=== PATIENT | male | born 1960 | race Caucasian/White ===

== ENCOUNTER 2017-02-10 05:48 | Emergency (ER) | payer BC ==
[~2017-02-10] VITALS: Ht 167.6 cm; Wt 61.2 kg
[2017-02-10] MEDS ORDERED: IV NORMAL SALINE 1,000ML 1,000 ML IV SCH (06:00)
[2017-02-10] MEDS ORDERED: ONDANSETRON PF 4 MG/2 ML VIAL. IV ONE (06:15)
[2017-02-10] MEDS ORDERED: PROMETHAZINE IM 25 MG/ML VIAL IM ONE (06:18)
[2017-02-10] MEDS ORDERED: IV NORMAL SALINE 50ML 50 ML ONE (06:19)
[2017-02-10] MEDS: PROMETHAZINE 25 MG in IV NORMAL SALINE 50ML 50 ML IV PRN ×2 (06:22→06:29)
[2017-02-10 06:25] LABS: HEMOGLOBIN ISTAT 17.3 gm/dL; POTASSIUM ISTAT 5.9 mmol/L (3.5-5.0)
--- NOTE | 2017-02-10 06:31 | EKG ---
[address] [address] Test Date: 2017-02-10 Test Time: 06:29:26 Pat Name: KJ VARNER Department: Room: Gender: M Housecleaner: VINCENT : 1960 Requested By: SHELIA GAITAN Order Number: [id number] Reading MD: Home Mary Measurements Intervals [place] Rate: 117 P: -123 OK: 124 QRS: 75 QRSD: 106 T: 62 QT: 300 QTc: 423 Interpretive Statements SINUS TACHYCARDIA NON-SPECIFIC ST/T CHANGES Electronically Signed On 02-12-2017 9:46:45 CDT by Home Mary
[2017-02-10 06:32] LABS: BASO # 0.2 x10^3/uL (0.0-0.2); BASO % 1 % (0-3); EOS % 0 % (0-3); HEMATOCRIT 48.9 % (39.0-53.0); HEMOGLOBIN 15.6 g/dL (13.0-17.5); LYMPH # 0.7 x10^3/uL (1.0-4.8); LYMPH % 3 % (24-48); MEAN CORPUSCULAR HEMOGLOBIN 34 pg (25-35); MEAN CORPUSCULAR HGB CONC 32 g/dL (31-37); MEAN CORPUSCULAR VOLUME 106 fL (79-100); MONO # 0.6 x10^3/uL (0.0-1.1); MONO % 2 % (0-9); NEUT # 22.5 x10^3uL (1.8-7.7); NEUT % 94 % (31-73); PLATELET COUNT 289 x10^3/uL (140-400); RED BLOOD COUNT 4.63 x10^6/uL (4.30-5.70); WHITE BLOOD COUNT 23.9 x10^3/uL (4.0-11.0)
--- NOTE | 2017-02-10 06:35 | PHYS DOC ---
General Chief Complaint: NAUSEA/VOMITING/DIARRHEA Stated Complaint: VOMITING Time Seen by MD: 05:58 Source: patient, family Exam Limitations: clinical condition Problems: History of Present Illness Initial Comments Pt is 56/M h/o DM2 to ED with spouse c/o n/v. Pt reports sudden onset n/v x 24 hours (0700 yest), chest pain developed 1800 yesterday (moderate, ant chest, tightness no exac/reliev factors). Last PO was attempt to eat some breakfast yesterday, reports PO intolerance. FSBS at home "high" spouse convinced him to come to ED this morning. On arrival pt with severe n/v, emesis with red tint and sent for gastroccult. Denies chest pain on arrival, c/o generalized abdominal muscle discomfort no focal abdominal pain c/o. No travel/bad food exposure, no fever/chills/myalgias/sob/focal neurodef. 98.5, 110, 28, 185/79, 100% RA Colonoscopy 1 month ago reportedly normal. 10# weight loss past 12 months. Follows with Kaya Hagen Timing/Duration: 24 hours Severity: severe Modifying Factors: worse with eating Associated Symptoms: chest pain, diaphoresis, headaches, malaise, nausea/ vomiting, weakness, other Allergies: Coded Allergies: pseudoephedrine (Verified Allergy, Unknown, 02/10/17) Past Medical History Medical History: other (DM) Surgical History: appendectomy (colonoscopy one month ago "normal") Social History Smoker: non-smoker Alcohol: none Drugs: none Review of Systems Constitutional: denies chills, diaphoresis, denies fever, malaise, weakness Respiratory: denies cough, denies shortness of breath, denies wheezing Cardiovascular: see HPI, denies edema, denies palpitations, denies syncope Gastrointestinal: see HPI, abdominal pain, denies constipation, denies diarrhea , nausea, vomiting Genitourinary: denies dysuria, denies frequency, denies hematuria Musculoskeletal: denies back pain, denies joint swelling, muscle pain, denies neck pain Psychiatric/Neurological: headache, denies numbness, denies paresthesia, denies weakness Hematologic/Lymphatic: denies blood clots, denies easy bleeding, denies easy bruising Physical Exam General Appearance: severe distress, thin Eyes: bilateral eye normal inspection, bilateral eye PERRL, bilateral eye EOMI Ear, Nose, Throat: hearing grossly normal, normal ENT inspection, normal pharynx (very dry mucus membranes) Neck: non-tender, supple Respiratory: normal breath sounds, no respiratory distress Cardiovascular: normal peripheral pulses, no edema, tachycardia Gastrointestinal: soft (nondistended, diffusely tender no focality, neg kapadia no r/g/mass) Back: no CVA tenderness, no vertebral tenderness Extremities: non-tender, normal inspection Neurologic/Psychiatric: 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 Today's study with markedly peaked T waves (K+ 5.9) vs prior study 11/18/08. Given changes I did request Dr Tobar review the EKG he confirmed hyperkalemic changes. 1 View Chest: reviewed by me, no acute cardiopulmonary process evident on imaging. WBC 23.9, Hb 15.9, Na 129, K+ 5.8, CO2 7, BUN 36, Cr 1.9, glucose 607, lipase 3285, lactic acid 5.5, emesis gastroccult +, cultures pending Course: DM2 pt in severe distress with n/v to ED tachycardic/afebrile/ hypertensive. Phenergan 25mg/zofran 4mg along with NS bolus initiated on pt arrival with control of emesis. 14u regular insulin IV with glucose check shortly after 585. Protonix drip due to GIB will need GI. 0745: Pt discussed with Dr Alcocer who accepts pt for EMS transfer to ICU at [facility] will need GI evaluation on arrival. IMPRESSIONS: Acute Pancreatitis UGIB (suspect Ml-Shay) Metabolic Acidosis DM2 Hyperosmolar ARF Chest Pain with nl troponin I Hyperkalemia Hypovolemic Hyponatremia Departure Disposition: 05 XFER OTHER Diagnosis: GIB, pancreatitis, DM2 hyperosmolar/acidotic, ARF, Condition: STABLE Additional Instructions: EMS transfer to [facility] ICU Dr Alcocer is accepting. SHELIA GAITAN DO February 10, 2017 06:34
[2017-02-10 06:52] LABS: BGAS PH 7.05 (7.35-7.46)
[2017-02-10 06:55] LABS: GASTRIC OB PAT POSITIVE (NEG)
[2017-02-10 07:00] LABS: ALBUMIN 4.7 g/dL (3.4-5.0); ALBUMIN/GLOBULIN RATIO 1.2 (1.0-1.7); CALCIUM 9.6 mg/dL (8.5-10.1); CREATININE 1.9 mg/dL (0.7-1.3); MAGNESIUM 2.5 mg/dL (1.8-2.4); POTASSIUM 5.8 mmol/L (3.5-5.1); TOTAL BILIRUBIN 0.6 mg/dL (0.2-1.0); TOTAL PROTEIN 8.7 g/dL (6.4-8.2)
[2017-02-10] MEDS ORDERED: INSULIN REGULAR 100 UNIT/ML 10ML VIAL. IV ONE (07:00)
[2017-02-10] MEDS ORDERED: ASPI-630 PO (07:15)
[2017-02-10] MEDS ORDERED: INSU100V13 SQ (07:15)
[2017-02-10] MEDS ORDERED: INSU100I11 SQ (07:15)
[2017-02-10 07:22] LABS: % BANDS 3 % (0-9); % LYMPHS 5 % (24-48); % MONOS 1 % (0-10); % SEGS 91 % (35-66)
--- NOTE | 2017-02-10 07:22 | ACF ---
Admission Criteria Forms VOMITING Clinical Indications for Admission to Inpatient Care ( Place 'X' for any and all applicable criteria): Admission is indicated for 1 or more of the following(1)(2)(3): [ ]I. Complete or partial gastrointestinal obstruction [ ]II. Vomiting due to significant metabolic derangement (eg, severe hypercalcemia, diabetic ketoacidosis) [ ]III. Other cause of vomiting requiring hospitalization (eg, poisoning, increased intracranial pressure) [X]IV. Inpatient admission required rather than observation care because of 1 or more of the following [ ]i) Hemodynamic instability [ ]ii) Vomiting that is severe or persistent indicated by 1 or more of the following 1) Numerous episodes of vomiting in past 24hours (eg, every 1 to 2 hours) 2) Suggests severe underlying cause or complication (eg , projectile, feculent, bilious, coffee ground, bloody) 3) Appropriate antiemetic treatment (eg, repeated oral or parenteral dosing) does not sufficiently reduce vomiting within 12 to 24 hours of treatment 4) Treatment regimen necessary to adequately control vomiting requires inpatient level of care (eg, not immediately available in outpatient setting) [X]iii) Severe electrolyte abnormalities requiring inpatient care [ ]iv) Severe pain requiring acute inpatient management( Continuous or frequent (eg, every 2 to 4 hours) parental analgesics or analgesic regimen that can only be performed or initiated in inpatient setting) [ ]v) High fever or infection requiring inpatient admission as indicated by 1 or more of the following(7)(8): [ ]1) Appropriate outpatient or observation care antimicrobial treatment unavailable, not effective, or not feasible [ ]2) Documented bacteremia [ ]3) Temp >104.9 degrees F (40.5 degrees C) (oral) [ ]4) Temp >103.1 degrees F (39.5 C) (oral) or <96.8 degrees F (36 C) (rectal) that does not respond to all emergency treatment measures [ ]vi) Acute renal failure [ ]vii) IV fluid required rather than oral rehydration to replace significant on going losses (greater than 3 L/m2 per day) [ ]viii) Parenteral nutrition regimen that must be implemented on inpatient basis [ ]ix) Other condition, treatment or monitoring requiring inpatient admission Extended stay beyond goal length of stay may be needed for(1)(4): [ ]a) Severe vomiting [ ]b) Persistent vomiting, vital sign changes, severe electrolyte imbalance , or diagnosed cause of vomiting that requires continued hospitalization (eg, gastrointestinal obstruction , increased intracranial pressure) [ ]c) Surgery to treat identified causes of vomiting (eg, bowel obstruction , intracranial process) [ ]d) Comorbid illness that requires inpatient care (eg, acute heart failure , renal failure) [ ]e) Need for inpatient endoscopy The original [facility] content created by [employer] has been revised. The portions of the content which have been revised are identified through the use of italic text or in bold, and [facility] has neither reviewed nor approved the modified material. All other unmodified content is copyright [employer]. Please see references footnoted in the original [facility] edition 2016 YARELIS POWELL February 10, 2017 07:22
[2017-02-10 07:23] LABS: PLT ESTIMATE ADEQUATE (ADEQUATE)
[2017-02-10 07:24] LABS: POLYCHROMASIA SLIGHT; TOXIC GRANULATION SLIGHT
[2017-02-10 07:25] LABS: TOXIC VACUOLATION SLIGHT
--- NOTE | 2017-02-10 07:27 | ACF ---
Admission Criteria Forms DIABETES Clinical Indications for Admission to Inpatient Care (Place 'X' for any and all applicable criteria): Admission is indicated by presence of ALL (if I & II) or ANY ONE (if III or IV) of the following (1)(2)(3)(4): [ ]I. Diabetes is uncontrolled as indicated by ANY ONE of the following: [ ]a) Diabetic ketoacidosis as indicated by ALL of the following (8): [ ]i) Hyperglycemia (eg, plasma glucose greater than 200 mg/ dL (11.1 mmol/L)) [ ]ii) Acidosis (eg, arterial pH less than 7.30, serum bicarbonate level less than 15 mEq/L (mmol/L)) [ ]iii) Moderate ketonuria or ketonemia [ ]b) Hyperglycemic hyperosmolar state as indicated by ALL of the following(9)(10): [ ]i) Neurologic dysfunction (eg, stupor, coma, hemiparesis , seizure)(13) [ ]ii) Plasma glucose greater than 600 mg/dL (33.3 mmol/L) [ ]iii) Serum osmolality greater than 320 mOsm/kg (mmol/kg) [ ]c) Severe signs or symptoms secondary to hyperglycemia indicated by ANY ONE of the following: [ ]i) Altered mental status(10) [ ]ii) Significant hypovolemia or dehydration [ ]iii) Intractable nausea or vomiting [ ]iv) Unexplained fever or severe infection [ ]v) Severe electrolyte abnormality (eg, hypokalemia, hyperkalemia, hypernatremia) [ ]II. Management at other levels of care (Also use Diabetes: Observation Care as appropriate) is not feasible because of ANY ONE of the following: [ ]a) Condition was not adequately corrected with treatment at other levels of care. [ ]b) Treatment at other levels of care is not appropriate because of condition severity (eg, hyperosmolar coma). [ ]III. Contraindications and/or Inappropriate clinical situations for Observational Care in patients with Diabetes, when ANY ONE of the following is required: [ ]a) Patient require specific diagnostic workup or therapeutic intervention 22 [ ]b) Patient with abnormal vital signs or altered mental status 23 [ ]IV. General contraindications and/or Inappropriate clinical situations for Observational Care in patients with Diabetes, when ANY ONE of the following is required: [ ]a) Prediction of prolongation of LOS based on ANY ONE of the following may be considered as a contraindication for observational care 2, 3, 4, 5, 6, 7, 8, 9, 10, 11 [ ]i) Age > 65 yrs. [ ]ii) Patient arriving by ambulance [ ]iii) Patient with high acuity [ ]iv) Patient requiring vital sign monitoring [ ]v) Patient on IV medication [ ]b) Systolic blood pressures 180mmHg 3,12 [ ]c) Patient with altered mental status including delirium and other alteration of consciousness, (3) [ ]d) Patient whose discharge disposition will be to a fpc home or rehabilitation home should not be managed in Emergency Department Observation Unit. CMS rule requires 3 days hospital stay before such placement.3,13 [ ]e) Patient with failure to thrive due to broad array of etiologies 3,16,17 [ ]f) Inability to ambulate 3,14 Extended stay beyond goal length of stay may be needed for(3)(20): [ ]a) Treatment of precipitating causes [ ]b) Development of hypoglycemia [ ]c) Complications of treatment [ ]d) Complications of decompensated diabetes (eg, acute gastric dilatation, persistent metabolic or neurologic derangement) [ ]e) Active Comorbidities [ ]f) Older patients( 65 years or older) The original [employer] content created by [employer] has been revised. The portions of the content which have been revised are identified through the use of italic text or in bold,and [facility] has neither reviewed nor approved the modified material. All other unmodified content is copyright [employer]. Please see references footnoted in the original [employer] edition 2016 YARELIS POWELL February 10, 2017 07:27
--- NOTE | 2017-02-10 07:41 | RAD ---
EXAM: Chest, single view. HISTORY: Chest pain. COMPARISON: 11/18/2008. FINDINGS: A frontal view of the chest is obtained. There is no infiltrate, effusion or pneumothorax. The heart is normal in size. There are a few calcified granulomas. There is an azygos lobe. IMPRESSION: No acute pulmonary finding.
[2017-02-10] MEDS ORDERED: MORPHINE SULFATE 4 MG/ML DISP.SYRIN. IV/SQ PRN (07:45)
[2017-02-10 07:55] VITALS: BP 154/57
[2017-02-10] MEDS ORDERED: PANTOPRAZOLE SODIUM IV 80 MG in IV NORMAL SALINE 100ML 100 ML IV ONE (08:15)
[2017-02-10] MEDS ORDERED: LORazepam 2 MG/ML VIAL IV ONE (08:15)
[2017-02-10 08:30] LABS: BARBITURATES NEG (NEG); BENZODIAZEPINES NEG (NEG); CANNABINOIDS NEG (NEG); COCAINE NEG (NEG); METHADONE NEG (NEG); OPIATES NEG (NEG); PHENCYCLIDINE NEG (NEG)
[2017-02-10 08:32] LABS: AMPHETAMINE/METHAMPHETAMINE NEG (NEG)
[2017-02-10 08:35] LABS: BILIRUBIN,URINE NEG (NEG); CLARITY,URINE CLEAR; COLOR,URINE YELLOW; GLUCOSE,URINE 500 mg/dL (NEG); NITRITE,URINE NEG (NEG); UROBILINOGEN,URINE 0.2 mg/dL (0.2 mg/dL); WBC,URINE OCC /HPF (0-4)
[2017-02-10 08:36] LABS: BACTERIA,URINE 0 /HPF (0-FEW); SQUAMOUS EPITHELIAL CELL,UR OCC /LPF
== END 2017-02-10 08:37 | disposition short-term general hospital (02) ==
LOC: ER 05:48
DX: K92.2 Gastrointestinal hemorrhage, unspecified (principal); N17.9 Acute kidney failure, unspecified; K85.90 Acute pancreatitis without necrosis or infection, unspecified; R07.89 Other chest pain; E87.2 Acidosis; E11.00 Type 2 diabetes mellitus with hyperosmolarity without nonketotic hyperglycemic-hyperosmolar coma (NKHHC); E87.1 Hypo-osmolality and hyponatremia; E87.5 Hyperkalemia; Z88.8 Allergy status to other drugs, medicaments and biological substances
CPT/HCPCS: 36415; 71010; 80053; 80305; 80320; 81001; 82271; 82550; 82803; 82947; 83605; 83690; 83735; 83880; 84484; 85007; 85027; 85610; 85730; 93005; 96365; 96367; 96375; 99285; C9113; J1815; J2060; J2405; J2550; 80047; G0481; J7030

== ENCOUNTER → 2017-07-22 | Outpatient (CLI) | payer BC ==
[~2017-07-22] MED LIST: ASPI-630 PO; INSU100I11 SQ; INSU100V13 SQ
[2017-07-22 13:45] LABS: BASO % 0 % (0-3); EOS # 0.1 x10^3/uL (0.0-0.7); EOS % 2 % (0-3); HEMOGLOBIN 14.9 g/dL (13.0-17.5); LYMPH # 1.5 x10^3/uL (1.0-4.8); LYMPH % 15 % (24-48); MEAN CORPUSCULAR HEMOGLOBIN 34 pg (25-35); MEAN CORPUSCULAR HGB CONC 34 g/dL (31-37); MEAN CORPUSCULAR VOLUME 99 fL (79-100); MONO # 0.8 x10^3/uL (0.0-1.1); MONO % 7 % (0-9); NEUT # 7.7 x10^3uL (1.8-7.7); NEUT % 76 % (31-73); PLATELET COUNT 268 x10^3/uL (140-400); RED BLOOD COUNT 4.43 x10^6/uL (4.30-5.70); RED CELL DISTRIBUTION WIDTH 13.5 % (11.5-14.5); WHITE BLOOD COUNT 10.1 x10^3/uL (4.0-11.0)
[2017-07-22 13:48] LABS: CALCIUM 9.2 mg/dL (8.5-10.1); CREATININE 0.9 mg/dL (0.7-1.3); GFR 87.3; POTASSIUM 4.1 mmol/L (3.5-5.1)
[2017-07-22 14:59] LABS: SEDIMENTATION RATE 7 (0-15)
--- NOTE | 2017-07-22 16:41 | RAD ---
Three-view right elbow study History: Right elbow pain and swelling for 3 days. Findings: No joint effusion is seen. No acute fracture or dislocation or osteolytic process is evident. There is a loose osteochondral body measuring 5 mm in size involving the lateral aspect of the trochlea. No significant degenerative joint space narrowing or spurring is evident. Linear soft tissue calcification is seen within the anterior antecubital fossa. Soft tissue swelling of the olecranon is seen consistent with olecranon bursitis. IMPRESSION: Loose body in the right elbow. Olecranon bursitis.
== END | disposition home or self-care (01) ==
LOC: RAD 11:40
PROVIDERS: ATTEND Physician Assistant Medical
DX: M24.021 Loose body in right elbow (principal); M70.21 Olecranon bursitis, right elbow
CPT/HCPCS: 36415; 73080; 80048; 85025; 85651

== ENCOUNTER → 2017-10-26 | Outpatient (CLI) | payer OTHER, BC ==
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
== END | disposition home or self-care (01) ==
LOC: RAD 10:07
PROVIDERS: ATTEND Physician Assistant Medical
DX: M47.892 Other spondylosis, cervical region (principal)
CPT/HCPCS: 72040

== ENCOUNTER → 2021-05-23 | Outpatient (CLI) | payer OTHER ==
--- NOTE | 2021-05-23 16:22 | RAD ---
EXAM: XR LUMBAR SPINE 2-3V 05/23/2021 9:36 AM CLINICAL INDICATION: Back pain COMPARISON: None TECHNIQUE: 3 views of the lumbar spine. FINDINGS: There are hypoplastic ribs at T12 and partial sacralization of L5 on the right. There is no acute fracture. Alignment is normal. There is straightening of lordosis. Mild kyphosis at the thorac olumbar junction. There is mild disc space narrowing at T10-T11. Lumbar disc spaces are maintained. T here are small anterior osteophytes and degenerative endplate changes throughout the lumbar spine. Mi ld facet arthrosis. There are calcifications in the abdominal aorta. IMPRESSION: Mild multilevel degenerative disc disease. Electronically signed by: Zee Sorto MD (05/23/2021 4:20 PM) [id number]
== END ==
LOC: RAD 09:29
PROVIDERS: ATTEND Family Medicine
DX: Z02.71 Encounter for disability determination (principal); M47.816 Spondylosis without myelopathy or radiculopathy, lumbar region; M51.36 Other intervertebral disc degeneration, lumbar region; M40.295 Other kyphosis, thoracolumbar region; M48.04 Spinal stenosis, thoracic region; M25.78 Osteophyte, vertebrae; I70.0 Atherosclerosis of aorta
CPT/HCPCS: 72100

== ENCOUNTER 2022-01-01 03:48 | Emergency (ER) | payer OTHER ==
[~2022-01-01] VITALS: Ht 170.2 cm; Wt 52.5 kg
[2022-01-01] MEDS ORDERED: IV RINGERS SOLUTION,LACTATED 1,000 ML IV ONE ×2 (04:00→04:45)
--- NOTE | 2022-01-01 04:03 | PHYS DOC ---
Past History Past Medical History: Constipation, Diabetes Past Surgical History: Other Alcohol Use: None Drug Use: None Adult General Chief Complaint Chief Complaint: MULTIPLE COMPLAINTS HPI HPI Patient is a 61-year-old male with a past medical history of insulin-dependent diabetes who presents to the emergency department with family for chief complaint of 3 days of nausea, vomiting and diarrhea with decreased appetite, and decreased fluid intake secondary to the nausea and vomiting. States he has been taking his insulin just not near what it supposed to because he has not been eating. States he started having symptoms about a day after visiting family in the hospital. Denies any other recent traumas, travels, fevers, rash, chest pain, shortness of breath, dysuria, hematuria or blood in the stool. Review of Systems Review of Systems Review of systems otherwise unremarkable except noted in HPI Allergies Allergies Allergies Coded Allergies Type Severity Reaction Last Updated Verified pseudoephedrine Allergy Unknown 02/10/17 Yes Physical Exam Physical Exam Constitutional: Well developed, well nourished, appears ill and fatigued HENT: Normocephalic, atraumatic, bilateral external ears normal, oropharynx dry, no oral exudates, nose normal. [] Eyes: PERRLA, EOMI, conjunctiva normal, no discharge. [] Neck: Normal range of motion, no tenderness, supple, no stridor. [] Cardiovascular: Sinus tachycardia Lungs & Thorax: Tachypnea, was very mild upper respiratory congestion, no wheeze Abdomen: soft, generalized tenderness with no rebound or guarding, no masses, no pulsatile masses. [] Skin: Warm, dry, no erythema, no rash. [] Back: no CVA tenderness. [] Extremities: No tenderness, no cyanosis, no clubbing, ROM intact, no edema. [] Neurologic: Alert and oriented X 3, normal motor function, normal sensory function, able to sit, stand and walk without issue no focal deficits noted. [] Psychologic: Affect normal, judgement normal, mood normal. [] Current Patient Data Vital Signs Vital Signs Date Time Temp Pulse Resp B/P (MAP) Pulse Ox O2 Delivery O2 Flow Rate FiO2 01/01/22 03:52 97.4 114 44 154/95 (114) 96 Room Air EKG EKG [] Radiology/Procedures Radiology/Procedures [] Heart Score C/O Chest Pain: No Risk Factors: Risk Factors: DM, Current or recent (<one month) smoker, HTN, HLP, family history of CAD, obesity. Risk Scores: Risk Factors: DM, Current or recent (<one month) smoker, HTN, HLP, family history of CAD, obesity. Course & Med Decision Making Course & Med Decision Making Patient is a 61-year-old male, insulin-dependent diabetic who presents with 3 days of nausea, vomiting, diarrhea and hyperglycemia Vital signs notable for tachycardia, hypertension and tachypnea. Physical exam noted above. POC glucose 577. EKG with a rate of 112, QRS of 100, QTc of 438, no STEMI. Troponin not concerning. Placed on monitor with IV access established x2. Started on IV fluid resusc itation. Given home doses of long-acting and short acting insulin Laboratory analysis notable for hyponatremia, hyperkalemia, metabolic acidemia likely secondary to diabetic ketoacidosis and lactic acidosis. Imaging notable for colitis. Blood cultures obtained. Started on antibiotics. Started on insulin. Discussed all findings with patient and family and recommended admission to [place] for continued evaluation and treatment in the ICU for DKA likely secondary to an enteritis, dehydration, nausea and vomiting and not taking his insulin. Dragon Disclaimer Dragon Disclaimer This electronic medical record was generated, in whole or in part, using a voice recognition dictation system. Departure Departure: Impression: Primary Impression: DKA (diabetic ketoacidosis) Additional Impressions: Colitis Dehydration Nausea & vomiting Hyperkalemia Disposition: 02 SHORT TERM HOSPITAL Condition: STABLE Referrals: VERONICA RANGEL (PCP) Problem Qualifiers MICHELLE BHARDWAJ MD Jan 01, 2022 04:02
[2022-01-01] MEDS ORDERED: KETOROLAC 15 MG/ML VIAL. ONE (04:14)
[2022-01-01] MEDS ORDERED: INSULIN GLARGINE SYRINGE. SQ ONE (04:15)
[2022-01-01] MEDS ORDERED: METOCLOPRAMIDE HCL 10 MG/2 ML VIAL. IVP ONE (04:15)
[2022-01-01] MEDS ORDERED: KETOROLAC 15 MG/ML VIAL. IVP ONE (04:15)
[2022-01-01 04:29] LABS: BASO # 0.1 x10^3/uL (0.0-0.2); BASO % 1 % (0-3); EOS % 0 % (0-3); HEMOGLOBIN 14.4 g/dL (13.0-17.5); LYMPH # 1.3 x10^3/uL (1.0-4.8); LYMPH % 7 % (24-48); MEAN CORPUSCULAR HEMOGLOBIN 33 pg (25-35); MEAN CORPUSCULAR HGB CONC 31 g/dL (31-37); MEAN CORPUSCULAR VOLUME 107 fL (79-100); MONO # 0.7 x10^3/uL (0.0-1.1); MONO % 4 % (0-9); NEUT # 17.3 x10^3uL (1.8-7.7); NEUT % 89 % (31-73); PLATELET COUNT 330 x10^3/uL (140-400); RED BLOOD COUNT 4.38 x10^6/uL (4.30-5.70); RED CELL DISTRIBUTION WIDTH 13.8 % (11.5-14.5); WHITE BLOOD COUNT 19.4 x10^3/uL (4.0-11.0)
[2022-01-01 04:36] LABS: ALBUMIN 3.6 g/dL (3.4-5.0); ALBUMIN/GLOBULIN RATIO 1.4 (1.0-1.7); CALCIUM 8.8 mg/dL (8.5-10.1); CREATININE 2.1 mg/dL (0.7-1.3); GFR 32.4; MAGNESIUM 2.7 mg/dL (1.8-2.4); TOTAL BILIRUBIN 0.6 mg/dL (0.2-1.0); TOTAL PROTEIN 6.2 g/dL (6.4-8.2)
[2022-01-01 04:38] LABS: % BANDS 5 % (0-9); % LYMPHS 8 % (24-48); % MONOS 3 % (0-10); % SEGS 84 % (35-66); PLT ESTIMATE ADEQUATE (ADEQUATE)
[2022-01-01 04:43] LABS: POTASSIUM 6.6 mmol/L (3.5-5.1)
[2022-01-01 04:44] LABS: PHOSPHORUS 9.2 mg/dL (2.6-4.7)
[2022-01-01] MEDS ORDERED: CALCIUM GLUCONATE 1,000 MG/10 ML VIAL IV ONE (04:45)
[2022-01-01] MEDS ORDERED: INSULIN REGULAR VIAL 100 UNIT in IV NORMAL SALINE 100ML 100 ML IV PRN (04:45)
[2022-01-01] MEDS ORDERED: CALCIUM GLUCONATE 1,000 MG/10 ML VIAL ONE (04:48)
--- NOTE | 2022-01-01 04:48 | EKG ---
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
[2022-01-01] MEDS ORDERED: IV NORMAL SALINE 100ML 100 ML ONE (05:00)
--- NOTE | 2022-01-01 05:10 | RAD ---
CT chest, abdomen and pelvis without contrast PQRS statement: CT scans at this facility use dose reduction including either automated exposure cont rol, iterative reconstructions, and /or weight based radiation dosing via mA and kV modification when appropriate to reduce radiation dose to as low as reasonably achievable. HISTORY: Diabetic ketoacidosis. Chest findings: Extensive chronic calcified plaque. Thoracic aorta is calcified plaque. Ascending aor tic diameter 3.5 cm. Heart size normal. Pulmonary vessels and esophagus are unremarkable. No adenopat hy in the chest. Calcified granulomas in the chest. Pulmonary emphysema upper lobes. No pneumothorax. No pulmonary vascular pleural effusions. Abdomen findings: Extensive calcified plaque in the aorta and abdominal arteries. Lumbar disc disease . At the right renal hilum is a linear calcification measuring 7 mm this could be a urinary calcifica tion or vascular calcification. No ureteral calculi or hydronephrosis. Adrenals, pancreas, spleen, ga llbladder unremarkable. 2 cm hypodensity segment 4 the liver adjacent with also likely focal fat. The re is localized wall thickening and mild surrounding edema in the transverse colon distally to the re ctum likely colitis. Appendix is absent. No bowel obstruction. No abdominal fluid. Pelvis findings: Iliac artery calcified plaque. Right hydrocele or epididymal cysts. Prominent disten tion of the bladder. Rectosigmoid wall thickening. Prostate and bones are unremarkable. No pelvic flu id. Chronic left L5 spondylolysis defect. IMPRESSION: 1. Colitis involving the transverse colon distally to the rectum. 2. Other incidental findings as described above. Electronically signed by: Frank Padilla MD (01/01/2022 5:07 AM) [facility]
[2022-01-01 05:13] LABS: CLARITY,URINE CLEAR; COLOR,URINE YELLOW; GLUCOSE,URINE 500 mg/dL (NEG); NITRITE,URINE NEG (NEG); RBC,URINE RARE /HPF (0-2); UROBILINOGEN,URINE 0.2 mg/dL (0.2 mg/dL)
[2022-01-01 05:14] LABS: BACTERIA,URINE 0 /HPF (0-FEW); SQUAMOUS EPITHELIAL CELL,UR OCC /LPF; WBC,URINE RARE /HPF (0-4)
[2022-01-01 05:19] LABS: BGAS PH 7.1 (7.35-7.46)
[2022-01-01 07:05] LABS: CALCIUM 8.9 mg/dL (8.5-10.1); CREATININE 2.1 mg/dL (0.7-1.3); GFR 32.4; MAGNESIUM 2.8 mg/dL (1.8-2.4); POTASSIUM 4.8 mmol/L (3.5-5.1)
[2022-01-01] MEDS ORDERED: POTASSIUM CL 20MEQ-0.45% NACL 1,000 ML IV ONE (07:30)
[2022-01-01] MEDS ORDERED: INSULIN LISPRO 300 UNITS/3 ML VIAL. SQ SCH (07:30)
[2022-01-01 09:20] VITALS: BP 116/50
== END 2022-01-01 09:33 | disposition short-term general hospital (02) ==
LOC: ER 03:48
DX: E11.10 Type 2 diabetes mellitus with ketoacidosis without coma (principal); K52.9 Noninfective gastroenteritis and colitis, unspecified; E86.0 Dehydration; E87.5 Hyperkalemia; E11.9 Type 2 diabetes mellitus without complications; Z20.822 Contact with and (suspected) exposure to COVID-19; Z88.8 Allergy status to other drugs, medicaments and biological substances
CPT/HCPCS: 36415; 36600; 71250; 74176; 80048; 80053; 81001; 82330; 82803; 82947; 83605; 83735; 84100; 84484; 85007; 85025; 87040; 87077; 87426; 93005; 96365; 96366; 96368; 96372; 96374; 96375; 96376; 99285; C9803; J0610; J1815; J1885; J1956; J2765; J3010; J7120; U0003